=== PATIENT | female | born 1980 | race Caucasian/White ===

== ENCOUNTER 2018-12-19 20:37 | Emergency (ER) | payer SELFPAY ==
[2018-12-19] MEDS: IBUPROFEN 600 MG TAB PO (21:36)
== END 2018-12-19 23:41 | disposition home or self-care (01) ==
LOC: FTE 23:41
DX: S52.201A Unspecified fracture of shaft of right ulna, initial encounter for closed fracture (principal); W18.39XA Other fall on same level, initial encounter; Y92.9 Unspecified place or not applicable
CPT/HCPCS: 29125; 73110-RT; 99283-25